=== PATIENT | female | born 1985 | race Caucasian/White ===

== ENCOUNTER 2016-04-05 10:00 | Inpatient (IN) | payer BC ==
[2016-04-05] MEDS ORDERED: NORMAL SALINE 10 ML SYRINGE FLUSH IVP PRN ×4 (11:13→23:36)
[2016-04-05] MEDS ORDERED: Naloxone Inj 0.01 MG in Normal Saline Flush 1 ML IVP PRN (11:53)
[2016-04-05] MEDS ORDERED: ONDANSETRON 4 MG/2 ML VIAL IVP PRN ×3 (11:53→23:36)
[2016-04-05] MEDS ORDERED: Lidocaine 1% 10 MG/ML - 20 ML VIAL SUBCUT PRN (11:53)
[2016-04-05] MEDS ORDERED: CefOXitin Inj 2 GM in Sodium Chloride 0.9% 100 ML IV PRN (11:53)
[2016-04-05] MEDS ORDERED: Nalbuphine Inj 20 MG/ML Ampule IVP PRN ×3 (11:53→23:36)
[2016-04-05] MEDS ORDERED: diphenhydrAMINE 50 MG/1 ML VIAL IVP PRN (11:53)
[2016-04-05] MEDS ORDERED: LIDOCAINE W/ SODIUM BICARB 0.5 ML SYR SUBD PRN (11:53)
[2016-04-05] MEDS ORDERED: Carboprost Inj 250 MCG/ML AMP IM PRN ×2 (11:53→23:36)
[2016-04-05] MEDS ORDERED: TERBUTALINE SULFATE 1 MG/1 ML SDV SUBCUT PRN (11:53)
[2016-04-05] MEDS ORDERED: Metoclopramide Inj 10 MG/2 ML VIAL IV PRN (11:53)
[2016-04-05] MEDS ORDERED: METHYLERGONOVINE MALEATE 0.2 MG/1 ML VIAL IM PRN ×2 (11:53→23:36)
[2016-04-05] MEDS ORDERED: BUTORPHANOL TARTRATE 2 MG/1 ML VIAL IVP PRN (11:53)
[2016-04-05] MEDS ORDERED: NALOXONE 0.4 MG/1 ML VIAL IVP PRN (11:53)
[2016-04-05] MEDS ORDERED: Famotidine Inj 20 MG in Normal Saline Flush 10 ML IVP PRN ×5 (11:53→23:36)
[2016-04-05] MEDS ORDERED: MISOPROSTOL 200 MCG TABLET RECTAL PRN (11:53)
[2016-04-05] MEDS ORDERED: CALCIUM CARBONATE 500 MG (TUMS) CHEWABLE TABLET PO PRN ×2 (11:53→23:36)
[2016-04-05] MEDS ORDERED: Phenylephrine Inj 50 MCG in Normal Saline Flush 0.5 ML IVP PRN (11:53)
[2016-04-05] MEDS ORDERED: ePHEDrine Inj 5 MG in Normal Saline Flush 1 ML IVP PRN (11:53)
[2016-04-05] MEDS ORDERED: OXYTOCIN 10 UNIT/1 ML IM PRN (11:53)
[2016-04-05] MEDS ORDERED: CITRIC ACID/SODIUM CITRATE 30 ML CUP PO PRN (11:53)
[2016-04-05] MEDS ORDERED: Oxytocin 20 Units + LR 1,000 ML IV SCH ×3 (12:00→23:36)
[2016-04-05 12:33] LABS: RED BLOOD COUNT 4.16 10^6/uL (4.20-5.40); WHITE BLOOD COUNT 9.2 10^3/uL (4.8-10.8)
[2016-04-05 12:34] LABS: HEMATOCRIT 36.4 % (37.0-47.0); HEMOGLOBIN 12.8 g/dL (12.0-16.0); MEAN CORPUSCULAR HEMOGLOBIN 30.8 PG (27-31); MEAN CORPUSCULAR HGB CONC 35.2 g/dL (33-37); MEAN PLATELET VOLUME 10.6 FL (7.4-12.2); RDW COEFFICIENT OF VARIATION 12.2 % (11.5-14.5)
[2016-04-05] MEDS: Lactated Ringers-OB Dept 1,000 ML PRIMARY IV SCH ×4 (13:15→19:56)
[2016-04-05] MEDS: fentaNYL Inj 100 MCG/2 ML VIAL IV PRN ×2 (17:21→18:02)
[2016-04-05] MEDS ORDERED: BUPIVACAINE SPINAL 7.5 MG/1 ML - 2 ML IV ONE (18:19)
[2016-04-05] MEDS ORDERED: Fent/Bupiv 2mcg/0.0625% Epid 250 ML ONE (18:39)
[2016-04-05] MEDS ORDERED: fentaNYL 2 MCG/BUPIVACAINE 0.0625%/NS 0.9% 250 ML BAG EPIDURAL SCH (18:45)
--- NOTE | 2016-04-05 18:49 | CRNA.PROCE ---
Central Neuraxis Block Placemt - - Safety Measures: Time Out Taken, Site Verified - - Type of Block: Subarachnoid, Epidural Reason for Block: Analgesia Moniters Used During Block: SPO2, NIBP Positioning: Sitting Skin Prep Used: ChloroPrep Draped: Yes Skin Infiltration - Enter Amount Used in Comment Field: 1% Xylocaine (mL): Yes ( skin wheal) Spinal Needle Used: 18 Hustead 80 mm Local Anesthetic - Enter Amount Used in Comment Field: 0.75 % Bupivacaine with Dextrose (ml): Yes (.5ml), 1.5 % Xylocaine with Epinephrine 1:200,000 (mL): Yes (5ml) Number of Centimeters Catheter Threaded: 4 Bioclusive Dressing Applied: Yes
[2016-04-05] MEDS ORDERED: Nalbuphine Inj 20 MG/ML Ampule IVP ONE (19:58)
[2016-04-05] MEDS ORDERED: MORPHINE SULFATE/PF 10 MG/10 ML AMPULE ONE (22:14)
[2016-04-05] MEDS ORDERED: ePHEDrine Inj 50 MG/ML AMP ONE (22:41)
[2016-04-05] MEDS ORDERED: Lactated Ringers 1,000 ML PRIMARY IV ONE (22:42)
[2016-04-05] MEDS ORDERED: OXYTOCIN 10 UNIT/1 ML ONE (22:44)
[2016-04-05] MEDS ORDERED: KETOROLAC 30 MG/1 ML VIAL ONE (23:11)
--- NOTE | 2016-04-05 23:19 | OB.OP.NOTE ---
Operative Report Surgeon: Allison Scale Expert: Jerome Winter MD Anesthesia Type: Regional Anesthesia Provider: Lars Galo CRNA Surgery Date: 04/05/16 Preoperative Diagnosis: Cephalopelvic Disproportion Postoperative Diagnosis: Same Procedure: Primary Low Transverse Section Estimated Blood Loss (mL): 600 Fluids: 1000 ml Complications: None Findings at Surgery: Viable female infant in ROP position. Apgars 9/9. Weight 6# 3.7oz. Normal uterus, tubes and ovaries. Indications for the Procedure: CPD Description of Procedure: See dictated operative report. Plan: Routine post op care.
--- NOTE | 2016-04-05 23:23 | OB.PROGRES ---
Interval History: 30 yo G1 admitted this AM at 40 2/7 weeks with SROM at home at about 0430. GBS negative. Pt. was not aristides regularly on admission, so she was started on pitocin. She progressed well into active labor. She had regional analgesia , which abolished her perineal pain, but not her back pain, consisted with OP position. She achieved complete dilation and pushed for two hours with no descent of the head. SVE revealed probable OP position with the head impacted behind the pubic bone with insufficient room to clear the pubic bone. This was discussed with the patient and delivery was recommended and accepted by the patient. Objective - Labs CBC and BMP: 04/05/16 12:20 Labs - Last 24 Hours: Laboratory Results 04/05/16 04/05/16 Range/Units 11:15 12:20 WBC 9.20 (4.8-10.8) 10^3/uL RBC 4.16 L (4.20-5.40) 10^6/uL Hgb 12.8 (12.0-16.0) g/dL Hct 36.4 L (37.0-47.0) % MCV 87.5 (81-99) FL MCH 30.8 (27-31) PG MCHC 35.2 (33-37) g/dL RDW Std Deviation 38.4 L (39-50) fL RDW Coeff of Jimbo 12.2 (11.5-14.5) % Plt Count 204 (140-350) 10*3/uL MPV 10.6 (7.4-12.2) FL Amnio Fld Other Info Positive (NEGATIVE) - Vital Signs Last Taken Vital Signs: Vital Signs - Last Taken Temperature 98.6 F 04/05/16 15:00 Pulse Rate 63 04/05/16 13:28 Respiratory Rate 16 04/05/16 13:28 Blood Pressure 129/85 04/05/16 13:28 Pulse Ox 97 04/05/16 15:00
[2016-04-05] MEDS ORDERED: HYDROmorphone 2 MG/1 ML IVP PRN (23:26)
--- NOTE | 2016-04-05 23:26 | CRNA.PROCE ---
Central Neuraxis Block Placemt - - Safety Measures: Time Out Taken, Site Verified - - Type of Block: Subarachnoid Reason for Block: Surgical Moniters Used During Block: EKG, SPO2, NIBP Skin Prep Used: ChloroPrep Skin Infiltration - Enter Amount Used in Comment Field: 1% Xylocaine (mL): Yes ( skin wheal) Spinal Needle Used: 25 [place]ina 80 mm Local Anesthetic - Enter Amount Used in Comment Field: 0.75 % Bupivacaine with Dextrose (ml): Yes (2ml) Additive Used - Enter Amount Used in Comment Field: Preservative Free Morphine ( mg): Yes (.15mg) Bioclusive Dressing Applied: No
[2016-04-05] MEDS ORDERED: Lactated Ringers 1,000 ML PRIMARY IV SCH (23:30)
[2016-04-05] MEDS ORDERED: diphenhydrAMINE 50 MG/1 ML VIAL IV PRN (23:36)
[2016-04-05] MEDS ORDERED: diphenhydrAMINE 25 MG CAPSULE PO PRN (23:36)
[2016-04-05] MEDS ORDERED: DIPH,PERTUSS,TET(ADACEL) VAC/PF 0.5 ML (Tdap) IM SCH (23:36)
[2016-04-05] MEDS ORDERED: MISOPROSTOL 200 MCG TABLET RECTAL ONE (23:36)
[2016-04-05] MEDS ORDERED: Naloxone Inj 0.01 MG, Sodium Chloride 0.9% vial 1 ML IVP PRN ×2 (23:36)
[2016-04-05] MEDS ORDERED: OXYTOCIN 10 UNIT/1 ML IM ONE (23:36)
[2016-04-05] MEDS ORDERED: LANOLIN HPA 40 GM TUBE TOPICAL PRN (23:36)
[2016-04-05] MEDS ORDERED: Methylergonovine Tab 0.2 MG TAB PO PRN (23:36)
[2016-04-06] MEDS: D5-LR 1,000 ML PRIMARY IV SCH ×2 (01:00→10:37)
[2016-04-06] MEDS: KETOROLAC 30 MG/1 ML VIAL IVP PRN ×3 (04:28→21:11)
[2016-04-06] MEDS: oxyCODONE-ACETAMINOPHEN 5-325 TAB PO PRN ×3 (04:28→21:12)
[2016-04-06 05:55] LABS: HEMATOCRIT 31.3 % (37.0-47.0); HEMOGLOBIN 10.8 g/dL (12.0-16.0); MEAN CORPUSCULAR HEMOGLOBIN 30.4 PG (27-31); MEAN CORPUSCULAR HGB CONC 34.5 g/dL (33-37); MEAN PLATELET VOLUME 10.7 FL (7.4-12.2); RDW COEFFICIENT OF VARIATION 12.3 % (11.5-14.5); RED BLOOD COUNT 3.55 10^6/uL (4.20-5.40); WHITE BLOOD COUNT 18.82 10^3/uL (4.8-10.8)
--- NOTE | 2016-04-06 08:20 | CRNA.PROGR ---
Anesthesia Note Anesthesia Progress Note: Post OPAnesthesia Note Pt is sitting up in bed, nursing her new born. She states that her pain is well under control. Has been able to tolerate crackers and fluids. Denies any residual problems with SAB. SAB has resolved. Current VS are stable. Vital Signs - Last Taken Temperature 97.5 F 04/05/16 23:45 Pulse Rate 70 04/05/16 23:45 Respiratory Rate 17 04/05/16 23:45 Blood Pressure 113/67 04/05/16 23:45 Pulse Ox 95 04/06/16 04:52
[2016-04-06] MEDS: Prenatal Multivitamin Tab 1 TAB TAB PO SCH (11:09)
[2016-04-06] MEDS: Senna/Docusate Tab 1 TAB TAB PO SCH ×2 (11:09→21:34)
--- NOTE | 2016-04-06 12:08 | OB.PROGRES ---
Subjective Post Op Day: 1 Pain Management: PO Adam Catheter: Yes Flatus: No Diet: Regular Feeding Method: Exculsively Ambulating: Yes Concerns / Additional Information: Alexia is doing well this morning. She is tolerating a regular diet and ambulating well. She reports good pain control. Urine is clear and copious. Assesstment / Plan Assessment / Plan: POD 1, doing well. CCM.
[2016-04-07] MEDS: oxyCODONE-ACETAMINOPHEN 5-325 TAB PO PRN ×5 (00:30→20:50)
[2016-04-07] MEDS: KETOROLAC 30 MG/1 ML VIAL IVP PRN (03:15)
[2016-04-07] MEDS: Prenatal Multivitamin Tab 1 TAB TAB PO SCH (09:24)
[2016-04-07] MEDS: Senna/Docusate Tab 1 TAB TAB PO SCH ×2 (09:24→20:50)
--- NOTE | 2016-04-07 10:54 | OB.PROGRES ---
Subjective Post Op Day: 2 Pain Management: PO Adam Catheter: No Flatus: Yes Diet: Regular Feeding Method: Exculsively Ambulating: Yes Concerns / Additional Information: Doing well. Ambulating. No complaints. Assesstment / Plan Assessment / Plan: POD 2. Doing well. Plan discharge tomorrow.
[2016-04-07] MEDS: IBUPROFEN 800 MG TABLET PO PRN ×2 (12:06→20:50)
[2016-04-07 12:10] VITALS: RESP 18
[2016-04-08] MEDS: oxyCODONE-ACETAMINOPHEN 5-325 TAB PO PRN ×3 (00:52→08:54)
[2016-04-08] MEDS: IBUPROFEN 800 MG TABLET PO PRN (05:03)
[2016-04-08] MEDS: Senna/Docusate Tab 1 TAB TAB PO SCH (08:54)
[2016-04-08] MEDS: Prenatal Multivitamin Tab 1 TAB TAB PO SCH (08:54)
[2016-04-08 09:02] VITALS: TEMP 98.1
--- NOTE | 2016-04-08 10:14 | DCSUMMARY ---
Hospitalization Summary Admit Date: 04/05/16 Discharge Date: 04/08/16 Primary Diagnosis:: Term , Delivered Secondary Diagnosis:: Cephalopelvic disproportion Primary Surgery and Date: Primary LTCS Delivery Type: Hospital Course: See operative report for labor and delivery description. Post operative course was unremarkable. She was discharged to home on post op day 2 in good condition. / Postop Complications: None Complications: None. Exam - Vitals Vital Signs: Vital Signs Temperature 98.1 F Temperature Source Oral Pulse Rate [Pulse Oximeter] 82 Pulse Rate 60 Respiratory Rate 18 Blood Pressure [Left Arm] 129/91 Blood Pressure [Right Arm] 128/20 Blood Pressure 118/76 Pulse Ox 95 Oxygen Flow Rate 1 Oxygen Delivery Method Room Air Height 5 ft 5 in Weight 183 lb
== END 2016-04-08 10:34 | disposition home or self-care (01) | DRG 766 ==
LOC: OBOP 10:00 → OBIP 11:54 → MED/SURG 04-06 05:32 → OBIP 04-06 09:24
PROVIDERS: ADMIT Obstetrics & Gynecology; ATTEND Obstetrics & Gynecology
PROC: 10D00Z1 Extraction of Products of Conception, Low, Open Approach (ICD-10-PCS; principal; 2016-04-05 22:26)
DX: O33.9 Maternal care for disproportion, unspecified (principal); Z3A.40 40 weeks gestation of pregnancy; Z37.0 Single live birth
CPT/HCPCS: 36415; 59025; 81003; 84112; 85027; 94150; 94761; 99211; J1885; J2405; J2590; J2765; J3010; J3490; J7050; J7120